=== PATIENT | male | born 1955 | race Caucasian/White ===

== ENCOUNTER → 2019-12-22 08:47 | Outpatient (BNVA) | payer MEDICARE, OTHER, BC, SELFPAY | PROVIDERS: Family Provider Registered Nurse; PCP Registered Nurse; Visit Provider Registered Nurse | DX: E11.9 Type 2 diabetes mellitus without complications (principal); E78.5 Hyperlipidemia, unspecified; I48.91 Unspecified atrial fibrillation | CPT/HCPCS: 80053; 80061; 83036; 85025 ==

== ENCOUNTER → 2020-04-07 08:54 | Outpatient (BNVA) | payer MEDICARE, BC, SELFPAY | PROVIDERS: Family Provider Registered Nurse; PCP Registered Nurse; Visit Provider Registered Nurse | DX: N28.9 Disorder of kidney and ureter, unspecified (principal); R39.89 Other symptoms and signs involving the genitourinary system; R94.4 Abnormal results of kidney function studies | CPT/HCPCS: 80069; 81000 ==

== ENCOUNTER → 2020-05-10 11:26 | Outpatient (BNVA) | payer MEDICARE, BC, SELFPAY | PROVIDERS: Family Provider Registered Nurse; PCP Registered Nurse; Visit Provider Registered Nurse | DX: E11.29 Type 2 diabetes mellitus with other diabetic kidney complication (principal); N28.9 Disorder of kidney and ureter, unspecified | CPT/HCPCS: 80053; 81000; 83036 ==

== ENCOUNTER → 2021-01-14 11:42 | Outpatient (BNVA) | payer MEDICARE, BC, SELFPAY | PROVIDERS: Family Provider Registered Nurse; PCP Registered Nurse; Visit Provider Registered Nurse | DX: E78.5 Hyperlipidemia, unspecified (principal); E11.29 Type 2 diabetes mellitus with other diabetic kidney complication; I10 Essential (primary) hypertension; I48.91 Unspecified atrial fibrillation | CPT/HCPCS: 80053; 80061; 81000; 85025 ==

== ENCOUNTER → 2021-06-21 09:24 | Outpatient (BNVA) | payer MEDICARE, BC, SELFPAY | PROVIDERS: Family Provider Registered Nurse; PCP Registered Nurse; Visit Provider Registered Nurse | DX: E78.5 Hyperlipidemia, unspecified (principal); E11.29 Type 2 diabetes mellitus with other diabetic kidney complication; Z00.00 Encounter for general adult medical examination without abnormal findings; F17.201 Nicotine dependence, unspecified, in remission; E66.9 Obesity, unspecified; Z71.3 Dietary counseling and surveillance | CPT/HCPCS: 80053; 83036 ==

== ENCOUNTER → 2021-09-20 09:03 | Outpatient (BNVA) | payer MEDICARE, BC, SELFPAY | PROVIDERS: Family Provider Registered Nurse; PCP Registered Nurse; Visit Provider Registered Nurse | DX: R05.9 Cough, unspecified (principal); J01.40 Acute pansinusitis, unspecified; Z20.822 Contact with and (suspected) exposure to COVID-19 | CPT/HCPCS: 87400; 87635 ==

== ENCOUNTER → 2021-11-16 11:30 | Outpatient (BNVA) | payer MEDICARE, BC, SELFPAY | PROVIDERS: Family Provider Registered Nurse; PCP Registered Nurse; Visit Provider Internal Medicine | DX: E78.5 Hyperlipidemia, unspecified (principal); I48.91 Unspecified atrial fibrillation | CPT/HCPCS: 80048; 83880 ==

== ENCOUNTER → 2021-11-24 11:05 | Outpatient (BNVA) | payer MEDICARE, BC, SELFPAY | PROVIDERS: Family Provider Registered Nurse; PCP Registered Nurse; Visit Provider Internal Medicine | DX: I48.91 Unspecified atrial fibrillation (principal); N28.9 Disorder of kidney and ureter, unspecified; E78.5 Hyperlipidemia, unspecified; I25.10 Atherosclerotic heart disease of native coronary artery without angina pectoris; R06.00 Dyspnea, unspecified | CPT/HCPCS: 80048; 83880 ==

== ENCOUNTER 2021-11-28 08:39 | Outpatient (CLI) | payer MEDICARE, BC, SELFPAY ==
[2021-11-28 09:44] VITALS: BMI 32.9
--- NOTE | 2021-11-28 09:51 | NMCV_ITS ---
NM radha perf SPECT r/s* [id number] Cornel Webb Age: 66 Gender: M : 1955 Exam Date: 11/28/2021 09:51 Ordering Phys: Maulik Maravilla M.D ([email or web address]) Technologist: EVELYN Horn Exam Location: [facility] Indications: CHEST PAIN STRESS TEST Please [facility] IMAGE PROTOCOL Rest/Stress 1 Lexiscan Day Radiopharmaceutical Dose (mCi) Administration Site Administered by Rest: Tc-99m 11.0 IV EVELYN Jim Sestamibi Stress:Tc-99m 32.8 IV EVELYN Jim Sestamibi Rest: 28-Nov-2021 60 Discovery 630 Stress: 28-Nov-2021 30 Discovery 630 0.4mg Lexiscan. Images obtained in supine and prone position. SPECT RESULTS Technical Quality: Excellent Raw Data Analysis: Normal Image Corrections: No attenuation or motion correction applied Summed Stress Score: 11 Summed Rest Score: 6 Summed Difference Score: 5 PERFUSION FINDINGS Small sized perfusion abnormality of moderate severity of basal to apical inferior, apical lateral and apical chicas on rest images with mild reversibility in mid inferior and inferolateral chicas on stress images. FUNCTIONAL RESULTS (calculated via Gated SPECT) Stress Image LV EF (%): 72 Stress EDV (mL):130 TID: 1.04 Stress ESV (mL):37 FUNCTIONAL FINDINGS: The left ventricle is normal in size. Transient Ischemia Dilatation of 1. There is normal left ventricular systolic function. The left ventricular ejection fraction is normal with a value of 72%. There is normal left ventricular wall thickening with no regional wall motion abnormality. IMPRESSIONS 1. Small sized perfusion abnormality of moderate severity of basal to apical inferior, apical lateral and apical chicas with mild reversibility in mid inferior and mid inferolateral chicas. 2. This is likely suggestive of old myocardial infarction with mild hiral- infarct ischemia in right coronary artery/circumflex artery territory. 3. Overall left ventricular systolic function is normal without regional wall motion abnormalities. 4. No prior similar studies to compare. Mónica Butt MD (Electronically Signed) Final Date: 29 November 2021 20:30 S
--- NOTE | 2021-11-28 09:51 | ECG_ITS ---
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 Interpretive Statements NAME OF STUDY: LEXISCAN SESTAMIBI STRESS TEST INDICATION: [Shortness of Breath, ] Procedure: At the baseline, the blood pressure was 115/80 mmHg with a heart rate of 75 bpm. The electrocardiogram showed atrial fibrillation, no significant ST/T wave changes. The Lexiscan was infused over a period of 20 seconds. A total of 0.4 mg of Lexiscan was infused. The stress phase was continued for a total of 5 minutes. Heart rate was at the end of stress phase was 78 bpm and a blood pressure of 133/72 mmHg. The EKG at the peak infusion revealed since normal atrial fibrillation with no significant ST-T wave changes. Sestamibi was injected 20 seconds after the Lexiscan infusion. Blood pressure at the end of recovery phase was 138/74 mmHg with a heart rate of 77 bpm. Conclusion: 1. Normal EKG response to Lexiscan infusion 2. No Lexiscan induced chest pain or cardiac arrhythmia. 3. Normal blood pressure and heart rate response. 4. Sestamibi/sestamibi perfusion scan pending; see separate report. Electronically Signed On 12-28-2021 17:15:27 VERIFICATION REP by Maulik Maravilla M.D. [id number]
[2021-11-28] MEDS: regadenoson 0.4 Mg/5 ml Syringe IVP (11:25)
[2021-11-28 11:36] VITALS: BP 138/74; PULSE 76
== END 2021-11-28 08:40 | disposition home or self-care (01) ==
LOC: CDL 09:04
PROVIDERS: PCP Registered Nurse; Visit Provider Internal Medicine
DX: R06.02 Shortness of breath (principal); R07.9 Chest pain, unspecified
CPT/HCPCS: 78452; 93017; A9500; J2785

== ENCOUNTER 2021-12-21 08:02 | Outpatient (CLI) | payer MEDICARE, BC, SELFPAY ==
--- NOTE | 2021-12-21 08:45 | USCV_ITS ---
Cornel Webb Age: 66 Gender: M : 1955 Exam Date: 12/21/2021 08:24 Ordering Phys: Maulik Maravilla M.D ([email or web address]) Technologist: Exam Location: [facility] [place] Indication: DYSPNEA BP: 110 / 65 HR: Rhythm: Atrial fibrillation Technical Quality: Adequate MEASUREMENTS (Male / Female) Normal Values 2D ECHO LV Diastolic Diameter PLAX 4.6 cm 4.2 - 5.9 / 3.9 - 5.3 cm LV Systolic Diameter PLAX 3.1 cm IVS Diastolic Thickness 1.9 cm 0.6 - 1.0 / 0.6 - 0.9 cm IVS Systolic Thickness 1.8 cm LVPW Diastolic Thickness 1.3 cm 0.6 - 1.0 / 0.6 - 0.9 cm LVPW Systolic Thickness 1.6 cm LVOT Diameter 2.0 cm LV Ejection Fraction 2D Teich 61.1 % LV Ejection Fraction MOD 2C 60.3 % LV Ejection Fraction 2C AL 60.5 % LA Diameter 4.6 cm Aorta at Sinotubular Diameter 2.2 cm M-MODE Aortic Annulus Diameter 2.6 cm LA Ao Ratio MM 1.9 MV E Point Septal Separation 0.4 cm DOPPLER AV Peak Velocity 117.0 cm/s LVOT Peak Velocity 122.0 cm/s AV Area Cont Eq vti 3.2 cm squared AV Area Cont Eq pk 3.2 cm squared MV Area PHT 4.6 cm squared Mitral E to A Ratio 3.8 MV E' Velocity 98.0 cm/s Mitral E to LV E' Lateral Ratio 14.9 TR Peak Velocity 333.0 cm/s TR Peak Gradient 44.4 mmHg Right Atrial Pressure 3.0 mmHg Pulmonary Artery Systolic Pressu 47.4 mmHg PV Peak Velocity 123.0 cm/s RV Acceleration Time 0.1 s FINDINGS Left Ventricle Normal left ventricular size. LV systolic function is normal with EF of 55-60%. Mild apical hypokinesis. Diastolic function is indeterminate because of atrial fibrillation Right Ventricle The right ventricle is normal in size and function. Right Atrium The right atrium is normal in size. Left Atrium The left atrium is dilated Mitral Valve Mild mitral annular calcification without significant stenosis or prolapse. There is mild mitral regurgitation. Aortic Valve Structurally normal aortic valve without significant sclerosis or stenosis. There is no aortic regurgitation. Tricuspid Valve Structurally normal tricuspid valve without significant stenosis. Mild tricuspid regurgitation. RVSP is 45-50mmHg. This is consistent with mild to moderate pulmonary hypertension Pulmonic Valve Structurally normal pulmonic valve without significant stenosis. There is no pulmonic regurgitation. Pericardium Normal pericardium without effusion. Aorta Normal ascending aorta dimension. CONCLUSIONS LV systolic function is normal with EF of 55-60% Mild apical hypokinesis. Diastolic function is indeterminate because of atrial fibrillation Left atrium is dilated Mild mitral annular calcification is noted. Mild mitral regurgitation Mild tricuspid regurgitation. Mild to moderate pulmonary hypertension No comparison studies are available Maulik Maravilla MD (Electronically Signed) Final Date: 29 December 2021 10:55 S
== END 2021-12-21 08:03 | disposition home or self-care (01) ==
LOC: RAD 08:05
PROVIDERS: PCP Registered Nurse; Visit Provider Internal Medicine
DX: R06.00 Dyspnea, unspecified (principal); I08.1 Rheumatic disorders of both mitral and tricuspid valves; I27.20 Pulmonary hypertension, unspecified
CPT/HCPCS: 93306

== ENCOUNTER 2021-12-23 12:26 | Observation (INO) | payer MEDICARE, BC, SELFPAY ==
[2021-12-23] VITALS (19 sets, daily range): BP systolic 119–162; BP diastolic 61–91; PULSE 78–80; RESP 15–23; TEMP 35.9–36.7; O2SAT 97–99; BMI 32.9
[2021-12-23 07:39] LABS: Basophils % 0.6 %; Eosinophils # 0.3 10^3/uL (0.0-0.8); Eosinophils % 4.5 %; Hematocrit 28.3 % (42.0-52.0); Hemoglobin 7.6 g/dL (11.7-16.6); Lymphocytes # 1.1 10^3/uL (0.8-4.8); Lymphocytes % 16.4 %; Mean Corpuscular HGB Conc 26.9 g/dL (30.0-36.0); Mean Corpuscular Hemoglobin 21.2 pg (28.0-34.0); Mean Corpuscular Volume 79.1 fl (80-94); Mean Platelet Volume 9.4 fL (7.4-10.4); Monocytes # 0.6 10^3/uL (0.2-0.9); Monocytes % 8.7 %; Neutrophils # 4.73 10^3/uL (1.8-7.7); Neutrophils % 69.4 %; Nucleated Red Blood Cells % 0 %; Platelet Count 318 10^3/cmm (130-400); Red Blood Count 3.58 10^6/uL (4.1-5.3); Red Cell Distribution Width 16.5 % (12.1-15.1); White Blood Count 6.8 10^3/uL (4.0-10.0)
[2021-12-23 07:52] LABS: INR 1.15 (0.8-1.2)
[2021-12-23 07:57] LABS: Anion Gap 15.4 (5-19); Blood Urea Nitrogen 18 mg/dL (8-23); Calcium 8.9 mg/dL (8.5-10.5); Carbon Dioxide 24 mmol/L (22-29); Chloride 105 mmol/L (98-107); Glomerular Filtration Rate 66.6 mL/min (90-130); Glucose 150 mg/dL (65-115); Osmolality Calculated 295 mOsm/kg (285-295); Potassium 4.4 mmol/L (3.5-5.1); Sodium 140 mmol/L (136-145)
[2021-12-23 07:59] LABS: SARS Covid-2 Antigen Negative (Negative)
[2021-12-23 09:41] LABS: Basophils % 0.5 %; Eosinophils # 0.3 10^3/uL (0.0-0.8); Eosinophils % 4.7 %; Hematocrit 25.8 % (42.0-52.0); Hemoglobin 7.1 g/dL (11.7-16.6); Lymphocytes % 18.1 %; Mean Corpuscular HGB Conc 27.5 g/dL (30.0-36.0); Mean Corpuscular Hemoglobin 21.9 pg (28.0-34.0); Mean Corpuscular Volume 79.6 fl (80-94); Mean Platelet Volume 9.3 fL (7.4-10.4); Monocytes # 0.5 10^3/uL (0.2-0.9); Monocytes % 8.4 %; Neutrophils # 3.78 10^3/uL (1.8-7.7); Neutrophils % 67.8 %; Nucleated Red Blood Cells % 0 %; Platelet Count 254 10^3/cmm (130-400); Red Blood Count 3.24 10^6/uL (4.1-5.3); Red Cell Distribution Width 16.3 % (12.1-15.1); White Blood Count 5.6 10^3/uL (4.0-10.0)
--- NOTE | 2021-12-23 11:00 | XACV_ITS ---
Exam Room: 2 Ht: 180 cm Wt: 107 kg BSA: 2.35 m2 Gender: Male : 1955 Any Known Allergies: Other Exam Priority: Routine Procedure(s): Procedure Description: Diagnostic procedure Diagnostic Cath Status: Elective Diagnostic Findings * Left Anterior Descending has no significant disease. Prior stents are patent. * Right Coronary Artery has patent stents. No significant disease noted. * AV groove circumflex is a small sized vessel. It has 70-80% stenosis. Diffuse disease after that. It gives rise to an OM that is ostially occluded. * INDICATION: Dyspnea on exertion/ abnormal stress test. * Left Main has no disease. * Coronary angiography shows right dominance. Conclusions 1. Patent prior stents. 2. Small sized AV groove circumflex artery has 70-80% stenosis. Plan for medical therapy. 3. Significant new onset anemia noted on the labs done prior to cath. Will need outpatient workup. Recommendations * Aggressive medical therapy for coronary artery disease. * We will treat AV groove circumflex artery stenosis medically as is a small sized vessel. * Outpatient referrral for GI workup. * Outpatient cardiology follow up in 1-2 weeks. * Dyspnea on exertion likely from anemia. Interventional RX Recommendation: medical therapy and/or counseling Diagnostic RX Recommendation: medical therapy and/or counseling Anticoagulation: Heparin Pressures Phase:Rest AO : 117 / 66 ( 87 ) @ 10:11:00 AM 120 / 64 ( 86 ) @ 10:12:00 AM 123 / 69 ( 93 ) @ 10:14:00 AM 128 / 66 ( 92 ) @ 10:18:00 AM 132 / 68 ( 94 ) @ 10:18:00 AM LV : 146 / 4 / 28 @ 10:18:00 AM 134 / 5 / 23 @ 10:18:00 AM 132 / 5 / 23 @ 10:18:00 AM Valves Phase:DefaultPhase AV : 2.0 @ 12:24:37 PM AV Mean Gradient: 8.0 @ 12:24:37 PM Clinical Evaluation EBL: 5mL-10mL Procedural Details Pre-Procedure Time Out. Identified patient by full name and date of as verbalized by the patient/guarantor. Does the consent match the physician's order: Yes. Accurate & Complete Informed Consent: Yes. Inpatient/Outpatient History & Physical on Chart: Yes. If H&P is completed, is and addenduem needed: No; If yes, is the addendum complete: N/A. Visualize and Verify Site with Patient/Guarantor: N/A. Relevant Radiology Images available: Yes. Pre-op teaching completed and patient verbalized understanding. The risks, benefits, and alternatives of sedation and/or procedure were discussed by physician. The patient agrees to continue. Procedure started. [facility] Clinical Fraility Score: 3: Managing Well. 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 Chest Pain Symptom Assessment: Atypical Angina. Correct patient, site and procedure confirmed by cath team. PERRLA. 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 Lungs clear x 5 lobes. IV Site on Arrival: 18 gauge in the left anticubital. IV Fluids: 0.9% NaCl at KVO. 500 mL infused prior to director of cardiac cath lab. Pre Procedural Pulses: right dorsalis pedis was Doppled. Pre Procedural Pulses: left dorsalis pedis was 2+. Pre Procedural Pulses: right posterior tibial was Doppled. Pre Procedural Pulses: left posterior tibial was 2+. Pre Procedural Pulses: right radial was 3+. Oxygen started at 2liters/min via nasal canula. right groin was prepped with chloroprep then draped in the usual sterile fashion. right radial was prepped with chloroprep then draped in the usual sterile fashion. Physician notified. Baseline sample Acquired. HR: 80 BPM. Physician arrived. Physician scrubbed in. Immediate Pre-Procedure Time Out. Correct Patient: Yes; Correct Procedure: Yes; Correct Site: Yes; Correct Patient Position: Yes; Correct Supplies: Yes; Dried Flammable Prep: Yes; Blood Products Available: N/A;. Lidocaine 1% infiltrated to the right radial. Arterial access obtained. A 5 chinese TIG catheter in over wire. Multiple views taken of left coronary artery. Catheter redirected to the RCA. Multiple views taken of right coronary artery. EDP Sample taken: LV 134/5,23; HR: 80 BPM; SpO2: 100%. Pullback taken: LV 132/5,23; AO 128/66(92); Mean: 8mmHg, Peak to Peak: 2mmHg, SEP: 16sec/min; HR: 80 BPM; SpO2: 100%. Catheter removed over the standard wire. Physician scrubbed out. Patient's family updated. A TR Band was successful obtaining hemostatsis at the Right Radial artery insertion site. Post Procedure: Pulses reassessed and unchanged. PERRLA. 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 No VTE prophylaxis required. Medication's Wasted: Heparin = 3000 units. Medication's Wasted: Lidocaine 1% = 18 mL. Medication's Wasted: Nitro = 49.8 mg. Medication's Wasted: Other = Versed 1 mg. Total IV fluids: 38 mL. Contrast type used: Omnipaque 300 mg/mL, 150 mL bottle. Complications: None. Estimated blood loss: 5mL-10mL. Responsiveness - Normal response to verbal stimuli; alert and oriented, PERRLA. Airway - Unaffected, no intervention required; spontaneous ventilation. Circulation: W/N/L, pulses unchanged. Nausea/Vomiting: No. Procedure completed. Patient transferred by wheelchair to 1st floor. Vital chart was stopped. Access Site Site: Right Radial artery Sheath Size: 6 Fr Hemostasis Method: TR Band Hemostasis Success: Successful Procedure Medications Start: 11:58 AM Stop: 11:58 AM Medication: Versed Amount: 1 mg Route: I.V. Start: 11:58 AM Stop: 11:58 AM Medication: Fentanyl Amount: 50 mcg Route: I.V. Start: 12:05 PM Stop: 12:05 PM Medication: Versed Amount: 1 mg Route: I.V. Start: 12:06 PM Stop: 12:06 PM Medication: Fentanyl Amount: 50 mcg Route: I.V. Start: 12:08 PM Stop: 12:08 PM Medication: Nitrogylcerin Amount: 200 mcg Route: I.A. Start: 12:10 PM Stop: 12:10 PM Medication: Heparin Amount: 3000 units Route: I.V. Start: 12:11 PM Stop: 12:11 PM Medication: Versed Amount: 1 mg Route: I.V. I, the attending physician, have reviewed and verified all procedure medications. Yes, all medications given per verbal order History/Risk Factors Hypertension: No Dyslipidemia: Yes Peripheral Arterial Disease (PAD): No Myocardial Infarction (ME): No Obesity: No Renal Disease: No Prior Interventions PCI: Yes CABG: No Valve Surgery: No Report Signatures Finalized by Maulik Maravilla MD on 01/03/2022 11:45 AM
--- NOTE | 2021-12-23 12:01 | W.PM.OPSFHP ---
Same Day Surgery H&P Indication for Procedure/HPI DATE OF PROCEDURE: December 23, 2021 CHIEF COMPLAINT/INDICATIONFOR SURGICAL PROCEDURE: Dyspnea on exertion/abnormal stress test PREOP DIAGNOSIS: Dyspnea on exertion/abnormal stress test PLANNED PROCEDURE: Operation Date: 12/23/21 12:00 Proposed Procedures p Cardiac Catheterization/93200/I25.10 artherosclerotic(Not Applicable) - Maulik Maravilla M.D Operation Date: 12/23/21 12:00 Proposed Procedures p Cardiac Catheterization/29333/I25.10 artherosclerotic(Not Applicable) - Maulik Maravilla M.D ?Cornel is now 65 years old. He has a history of permanent atrial fibrillation, coronary disease, peripheral arterial disease, sick sinus syndrome, pacemaker, hypertension, carotid stenosis, history of TIAs, dyslipidemia and prior smoking. Patient was having significant shortness of breath. He underwent Lexiscan that was abnormal. He has a significant anemia. We will perform diagnostic coronary angiogram. ROS CONSTITUTIONAL: No fever chills weight loss or gain or night sweats. [] HEENT: Normocephalic, atraumatic.[] RESPIRATORY: No cough, sputum, hemoptysis or wheezing.[] CARDIOVASCULAR: Shortness of breath GI: no nausea vomiting diarrhea. [] LIVE SOURCE OPERATOR: No numbness, tingling, weakness or loss of function in any part of the body. [] MUSCULOSKELETAL: No knee or joint pain or rashes. [] Medications/Allergies* Home Medications Medication Instructions Recorded Confirmed Type aspirin 81 mg tablet,delayed 81 mg PO QDAY 11/27/19 12/23/21 History release (Adult Low Dose Aspirin) krill oil 500 mg capsule mg PO DAILY cap 11/27/19 12/07/21 History coenzyme Q10 200 mg capsule (Co 200 mg PO DAILY 11/29/20 12/23/21 History Q-10) metformin 500 mg tablet 500 mg PO ONCE tab 06/21/21 12/23/21 History Allergies/Adverse Reactions Allergy/AdvReac Type Severity Reaction Status Date / Time yellow dye Allergy Unknown Verified 11/16/21 10:54 Pertinent History/Comorbid Conditions* Medical History (Updated 11/17/21 @ 09:07 by Maulik Maravilla M.D) Anticoagulant long-term use ASHD (arteriosclerotic heart disease) Atrial fibrillation COPD (chronic obstructive pulmonary disease) Dyslipidemia Necrobiosis lipoidica PAD (peripheral artery disease) Tobacco abuse, in remission Surgical History (Updated 12/01/19 @ 16:44 by Buck Santizo MD) H/O circumcision Previous back surgery S/P angioplasty with stent S/P carpal tunnel release S/P cholecystectomy S/P peripheral artery angioplasty with stent placement S/P rotator cuff repair Status cardiac pacemaker Family History (Updated 11/27/19 @ 10:40 by Regina Bettencourt RN) CAD (coronary artery disease) Social History Smoking and tobacco status: former smoker Alcohol intake: current Alcohol intake frequency: holidays/special occasions only Alcohol type: beer Lives independently: Yes Household members: spouse Marital status: service: Yes branch: [employer] Current occupational status: retired Current gender identity: Male Pertinent Exam Findings alert, oriented x 3, clear to auscultation bilaterally and regular rate & rhythm Conscious Sedation Assessment PATIENT ASSESSED PRIOR TO SEDATION, WITH NO CHANGE NOTED: Yes AIRWAY EVAL/ANESTHESIA PLAN: normal airway, see other exam findings, ASA III, Monitored Anesthesia, Local Anesthesia, Risks, benefits & alternatives of sedation and/or procedure discussed and Patient agrees to continue as planned Recommendations Surgery/Procedure today (Left heart cath with possible percutaneous coronary intervention) Coding Level of Care Code Acute Teacher Of The Deaf/Hard Of Hearing for Yuliet Buckley
--- NOTE | 2021-12-23 17:09 | PC.NURSE ---
Around 1315: Patient arrived to [facility] for recovery after LHC. Hgb 7.1. Orders received from Dr. Maravilla to transfuse 1 unit PRBCs. Medication and diet orders recieved, see MAR and orders. Around 1600: TR Band removed. Cleaned site with soap and water. Dress site with 2x2 and transparent film. No drainage or hematoma noted.
[2021-12-23] MEDS: FUROsemide 10 mg/mL SDV 4mL 40 MG IVP (17:32)
--- NOTE | 2021-12-23 17:46 | PM.SDS ---
Short Stay Summary Providers Date of Admit/Discharge: 12/23/21 Attending Provider: Maulik Maravilla M.D Primary Care Provider: MICHELLE Can Chief Complaint: I25.10 Atherosclerotic HPI History of Present Illness Cornel Webb is a 66 year old male ?with PMH of permanent atrial fibrillation, coronary disease, peripheral arterial disease, sick sinus syndrome, pacemaker, hypertension, carotid stenosis, history of TIAs, dyslipidemia and prior smoking.? Patient was having significant shortness of breath.? He underwent Lexiscan that was abnormal.? On his labs performed today patient was found to have significant anemia with hemoglobin of 7.6 that on repeat testing was 7.1. This was a significant drop from last hemoglobin from 1 year back when it was 14. Patient denied bleeding issues. We decided to perform diagnostic coronary angiogram only. Review of Systems Const: Reports: fatigue; Denies: fever(s), chills, change in weight or diaphoresis Eyes: Denies: change in vision or eye redness ENMT: Denies: throat pain, odynophagia, mouth pain or epistaxis Card: Reports: swelling of feet/ankles, lightheadedness and dyspnea on exertion; Denies: chest pain, palpitations, irregular heart rhythm, edema, syncope, pre-syncope, orthopnea or leg pain with exertion Resp: Denies: dyspnea, productive cough or wheezing GI: Reports: nausea and heartburn ( sour stomach ); Denies: vomiting, hematemesis, hematochezia or melena : Denies: hematuria Musc: Denies: extremity swelling or joint pain Skin/Breast: Denies: rash, pruritus, erythema or new lesions Neuro: Reports: weakness in extremities and dizziness; Denies: numbness in extremities, sensory changes, frequent falls, Slurred speech present or difficulty communicating thoughts Psych: Denies: anxiety, depression, irritability, suicidal ideation or homicidal ideation Endo: Denies: polyuria, polydipsia or excessive sweating Gibson/Lymph: Reports: easy bruising and easy bleeding Home Meds/Allergies Home Medications and Allergies Home Medications Medication Instructions Recorded Confirmed Type aspirin 81 mg tablet,delayed 81 mg PO QDAY 11/27/19 12/23/21 History release (Adult Low Dose Aspirin) krill oil 500 mg capsule mg PO DAILY cap 11/27/19 12/07/21 History coenzyme Q10 200 mg capsule (Co 200 mg PO DAILY 11/29/20 12/23/21 History Q-10) metformin 500 mg tablet 500 mg PO ONCE tab 06/21/21 12/23/21 History Allergies Allergy/AdvReac Type Severity Reaction Status Date / Time yellow dye Allergy Unknown Verified 01/03/22 10:48 PFSH Acute PFSH: Medical History Anticoagulant long-term use ASHD (arteriosclerotic heart disease) Atrial fibrillation COPD (chronic obstructive pulmonary disease) Dyslipidemia Necrobiosis lipoidica PAD (peripheral artery disease) Tobacco abuse, in remission Surgical History H/O circumcision Previous back surgery S/P angioplasty with stent S/P carpal tunnel release S/P cholecystectomy S/P peripheral artery angioplasty with stent placement S/P rotator cuff repair Status cardiac pacemaker Family History Other CAD (coronary artery disease) Social History Smoking and tobacco status: former smoker Alcohol intake: current Alcohol intake frequency: holidays/special occasions only Alcohol type: beer Lives independently: Yes Household members: spouse Marital status: service: Yes branch: [employer] Current occupational status: retired Current gender identity: Male Vitals/I&O/Wt Last Vital Signs Temp 97.8 F 12/23/21 15:13 Pulse 79 12/23/21 16:28 Resp 18 12/23/21 16:28 BP 137/77 12/23/21 16:28 Pulse Ox 99 12/23/21 16:28 12/23/21 12/23/21 12/23/21 06:59 14:59 22:59 Intake Total 0 / 0 Balance 0 / 0 Weight last 48 hrs Weight 236 lb Physical Exam Narrative: GENERAL: Patient is alert, awake and oriented x3. [] NECK: No jugular vein distension. [] HEENT: No cyanosis. No icterus. No pallor. [] HEART: Irregularly regular. No murmur, rub or gallop. [] LUNGS: Clear to auscultate bilaterally. [] ABDOMEN: Soft, nontender and nondistended. Positive bowel sounds. No guarding, rebound or tenderness. [] CENTRAL NERVOUS SYSTEM: Grossly nonfocal. [] EXTREMITIES: Lower extremities with 1+ edema bilaterally. Pulses palpable in the lower extremities, both dorsalis pedis and posterior tibial. [] Hospital Course Hospital Course Cornel Webb is a 66 year old male ?with PMH of permanent atrial fibrillation, coronary disease, peripheral arterial disease, sick sinus syndrome, pacemaker, hypertension, carotid stenosis, history of TIAs, dyslipidemia and prior smoking.? Patient was having significant shortness of breath.? He underwent Lexiscan that was abnormal.? On his labs performed today patient was found to have significant anemia with hemoglobin of 7.6 that on repeat testing was 7.1. This was a significant drop from last hemoglobin from 1 year back when it was 14. Patient denied bleeding issues. We decided to perform diagnostic coronary angiogram only. Coronary angiogram demonstrated patent prior stents. AV groove circumflex had significant stenosis. Distal OM branch was ostially occluded and was filling via collateral blood supply. Plan was to manage him medically. Postprocedure, we transfused him with 1 unit of blood given his Hgb of 7.1 and history of CAD.. Plan for referring him to Dr. Sorenson who has seen him in the past for possible upper and lower GI scopes. We will hold Xarelto till that time SSS Data Data Completed and Pending: Pending at discharge Category Date Time Status BUSINESS SUPPORT SPECIALIST request for service Routin e Exams 12/23/21 11:00 Ordered PRBC [Leukocyte R educed RBC] Routin e Lab 12/23/21 13:19 Results Type and Screen T imed Lab 12/23/21 13:19 Results Discharge Plan Discharge Patient Disposition: Home Condition: Stable Prescriptions: Continued metoprolol tartrate 50 mg tablet 50 mg PO BID Qty: 180 6RF coenzyme Q10 [Co Q-10] 200 mg capsule 200 mg PO DAILY 0RF krill oil 500 mg capsule PO DAILY 0RF aspirin [Adult Low Dose Aspirin] 81 mg tablet,delayed release (DR/EC) 81 mg PO QDAY 0RF atorvastatin 40 mg tablet 40 mg PO DAILY Qty: 90 3RF nitroglycerin [Nitrostat] 0.4 mg tablet, sublingual 0.4 mg SUBLINGUAL Q5M PRN (Reason: chest pain) Qty: 25 3RF furosemide 40 mg tablet 40 mg PO DIRECTED Qty: 90 3RF Rx Instructions: Take one tab in the morning and 1/2 tab in the afternoon. isosorbide mononitrate 30 mg tablet extended release 24 hr 30 mg PO BID Qty: 180 3RF Held metformin 500 mg tablet 500 mg PO ONCE 0RF Hold Instructions: Resume on 12/25/21. Xarelto 20 mg tablet See Rx Instructions .ROUTE .COMPLEX Qty: 90 0RF Hold Instructions: Hold till possible GI bleed workup is complete Dose Instruction: TAKE 1 TABLET BY MOUTH DAILY Rx Instructions: TAKE 1 TABLET BY MOUTH DAILY No Action fenofibrate nanocrystallized 145 mg tablet See Rx Instructions .ROUTE .COMPLEX Qty: 90 3RF Dose Instruction: TAKE 1 TABLET DAILY (BY Infoxel) Rx Instructions: TAKE 1 TABLET DAILY (BY Infoxel) glipizide 5 mg tablet See Rx Instructions .ROUTE .COMPLEX Qty: 90 3RF Dose Instruction: TAKE 1 TABLET DAILY Rx Instructions: TAKE 1 TABLET DAILY Discharge Orders: Discharge Order (Routine); Ordered 12/23/21 Ordered By: Maulik Maravilla Referrals: Maulik Maravilla M.D [Physician] - 1 month (Heart care services will be calling you to arrange your follow-up care. ) Angi Head FNP [Nurse Practitioner] - 7-10 days (Heart care services will be calling you to arrange your follow-up care. ) Discharge Diet: Diabetic Discharge Activity: Increase activity as tolerated Patient Instructions: Opioid Safety, Post Angiogram Home Care Instructions Attestations Medical Necessity Statement*: Care not expected to cross 2 midnights Time Spent in Patient Care*: greater than 30 min Quality Metrics Clinical Quality Measures: [ No reported AMI, CVA or VTE this stay] Coding Level of Care Code Acute Learning Development Specialist for Yuliet Buckley
--- NOTE | 2021-12-23 19:15 | PC.NURSE ---
Discharge Note Patient discharged to home via private vehicle accompanied by spouse. Discharge instructions reviewed with patient and/or national sales representative. Mobile pharmacy medications and/or prescriptions provided. Belongings/home medications returned.
== END 2021-12-23 19:00 | disposition home or self-care (01) ==
LOC: CSU 12:28
PROVIDERS: Admitting Provider Internal Medicine; PCP Registered Nurse; Visit Provider Internal Medicine
DX: I25.10 Atherosclerotic heart disease of native coronary artery without angina pectoris (principal); I48.21 Permanent atrial fibrillation; I73.9 Peripheral vascular disease, unspecified; Z95.0 Presence of cardiac pacemaker; I10 Essential (primary) hypertension; Z86.73 Personal history of transient ischemic attack (TIA), and cerebral infarction without residual deficits; Z79.82 Long term (current) use of aspirin; J44.9 Chronic obstructive pulmonary disease, unspecified; Z87.891 Personal history of nicotine dependence; Z95.5 Presence of coronary angioplasty implant and graft
CPT/HCPCS: 36415; 36430; 80048; 85025; 85610; 86850; 86900; 86920; 87426; 93452; 93458; C1769; C1887; C1894; G0378; J1644; J1940; J2250; J3010; J3490; J7030; P9016; Q9967

== ENCOUNTER → 2022-01-03 10:28 | Outpatient (BNVA) | payer MEDICARE, BC, SELFPAY | PROVIDERS: PCP Registered Nurse; Visit Provider Nurse Practitioner Family | DX: I25.10 Atherosclerotic heart disease of native coronary artery without angina pectoris (principal); R06.00 Dyspnea, unspecified; I27.20 Pulmonary hypertension, unspecified; Z09 Encounter for follow-up examination after completed treatment for conditions other than malignant neoplasm; I48.91 Unspecified atrial fibrillation; Z87.891 Personal history of nicotine dependence | CPT/HCPCS: 80048; 83880; 85025; 87635; 99214 ==

== ENCOUNTER 2022-01-04 08:17 | Day surgery (SDC) | payer MEDICARE, BC, SELFPAY ==
[2022-01-03 14:14] VITALS: BMI 29.9
--- NOTE | 2022-01-04 08:35 | ANES.PREANE2 ---
Pre-Anesthetic Assessment Height/Weight: Height 1.8 m Weight 97.522 kg Preop Diagnosis: diagnostic Operation Date: 01/04/22 10:00 Proposed Procedures p EGD 08312/24539/d50.9(Not Applicable) - Hero Sorenson MD s Colonoscopy(Not Applicable) - Hero Sorenson MD Familial anesthetic complications: None Was Beta Jess taken within 24 hours: N/A Was Clonidine taken within 24 hours: N/A Social No alcohol and No tobacco Exam alert, oriented x 3, clear to auscultation bilaterally and regular rate & rhythm Airway Submandibular: within normal limits Cervical ROM: within normal limits Mallampati: Class II Comments: Comments: Mathew Pulmonary Exertional Dyspnea CV/HEM Atrial Fibrillation, Anemia, Coronary Artery Disease (Stents) and Peripheral Vascular Disease Pacemaker Metabolic Diabetes Mellitus and Morbid Obesity [facility] [place] Lower Back Pain Anesthetic Plan ASA status: 3 Anesthesia: MAC Medications/Allergies Home Medications Medication Instructions Recorded Confirmed Last Taken Type aspirin 81 mg tablet,delayed 81 mg PO QDAY 11/27/19 01/03/22 12/23/21 05:00 History release (Adult Low Dose Aspirin) krill oil 500 mg capsule 500 mg PO DAILY cap 11/27/19 01/03/22 Unknown History metoprolol tartrate 50 mg tablet 50 mg PO BID #180 tab 05/31/20 01/03/22 12/23/21 05:00 Rx coenzyme Q10 200 mg capsule (Co 200 mg PO DAILY 11/29/20 01/03/22 12/23/21 05:00 History Q-10) nitroglycerin 0.4 mg sublingual 0.4 mg SUBLINGUAL Q5M PRN #25 tab 03/07/21 01/03/22 Unknown Rx tablet (Nitrostat) atorvastatin 40 mg tablet 40 mg PO DAILY #90 tab 06/21/21 01/03/22 12/22/21 20:30 Rx metformin 500 mg tablet 500 mg PO ONCE tab 06/21/21 01/03/22 12/21/21 09:00 History rivaroxaban 20 mg tablet (Xarelto) See Rx Instructions .ROUTE 10/11/21 01/03/22 12/27/21 Rx .COMPLEX #90 tab furosemide 40 mg tablet 40 mg PO DIRECTED #90 tab 11/30/21 01/03/22 12/22/21 14:00 Rx isosorbide mononitrate 30 mg 30 mg PO BID #180 tab 11/30/21 01/03/22 12/23/21 05:00 Rx tablet,extended release 24 hr fenofibrate nanocrystallized 145 See Rx Instructions .ROUTE 12/27/21 01/03/22 Unknown Rx mg tablet .COMPLEX #90 tab glipizide 5 mg tablet 5 mg PO DAILY 01/03/22 01/03/22 Unknown History pantoprazole 40 mg tablet,delayed 40 mg PO DAILY #30 tab 01/03/22 01/03/22 Unknown Rx release (Protonix) Allergies Allergy/AdvReac Type Severity Reaction Status Date / Time yellow dye Allergy Unknown Verified 01/03/22 13:06 [facility] Anesthesia Medical History (Updated 01/03/22 @ 15:23 by Hero Sorenson MD) Anemia ASHD (arteriosclerotic heart disease) Atrial fibrillation COPD (chronic obstructive pulmonary disease) Dyslipidemia Necrobiosis lipoidica PAD (peripheral artery disease) Pulmonary hypertension Surgical History H/O circumcision Previous back surgery S/P angioplasty with stent S/P carpal tunnel release S/P cholecystectomy S/P peripheral artery angioplasty with stent placement S/P rotator cuff repair Status cardiac pacemaker Family History Other CAD (coronary artery disease) Social History Smoking and tobacco status: former smoker Alcohol intake: current Alcohol intake frequency: holidays/special occasions only Alcohol type: beer Lives independently: Yes Household members: spouse Marital status: service: Yes branch: [employer] Current occupational status: retired Current gender identity: Male Data Anesthesia Cardiac Studies: Echocardiogram 12/21/21 Sestamibi Stress Test (Cardiology) 11/28/21
[2022-01-04 09:02] VITALS: BP 142/82; PULSE 80; RESP 18; TEMP 36.3; O2SAT 96
[2022-01-04] MEDS: sodium chloride 0.9% 1,000 ML 30 ML IV (09:06)
--- NOTE | 2022-01-04 10:05 | W.PM.OPSUD ---
Surgery/Procedure H&P Update DATE OF PROCEDURE: January 04, 2022 DATE H&P PERFORMED: 01/03/22 H&P UPDATE INFORMATION: I have reviewed H&P completed within last 30 days, I have examined patient prior to procedure and No changes to prior documentation PREOP DIAGNOSIS: diagnostic PLANNED PROCEDURE: Operation Date: 01/04/22 10:00 Proposed Procedures p EGD 67262/82158/d50.9(Not Applicable) - Hero Sorenson MD s Colonoscopy(Not Applicable) - Hero Sorenson MD
[2022-01-04 10:34] VITALS: BP 130/79; PULSE 80; RESP 16; TEMP 36.1; O2SAT 100
[2022-01-04 10:46] VITALS: BP 144/86; PULSE 81; RESP 16; O2SAT 99
--- NOTE | 2022-01-04 12:06 | ANE.PACU2 ---
Inpatient post-anesthesia follow up: Vital signs: Temperature 97 F Pulse Rate 81 Respiratory Rate 16 Blood Pressure 144/86 Pulse Oximetry 99 Oxygen Delivery Me thod Room Air Oxygen Flow Rate 3 Fraction of Inspir ed Oxygen Hydration adequate: Yes Nausea and vomiting: No Pain level: 1 Mental status: Baseline
[2022-11-14 12:20] VITALS: BMI 34.1
== END 2022-01-04 11:10 | disposition home or self-care (01) ==
PROVIDERS: PCP Registered Nurse; Visit Provider Surgery
PROC: 0DJ08ZZ Inspection of Upper Intestinal Tract, Via Natural or Artificial Opening Endoscopic (ICD-10-PCS; CPT 43235; principal; 2022-01-04 10:00)
PROC: 0DJD8ZZ Inspection of Lower Intestinal Tract, Via Natural or Artificial Opening Endoscopic (ICD-10-PCS; CPT 45378; 2022-01-04 10:00)
DX: D50.9 Iron deficiency anemia, unspecified (principal); K20.90 Esophagitis, unspecified without bleeding; K29.80 Duodenitis without bleeding; K64.5 Perianal venous thrombosis; I48.91 Unspecified atrial fibrillation; I25.10 Atherosclerotic heart disease of native coronary artery without angina pectoris; Z95.5 Presence of coronary angioplasty implant and graft; Z95.0 Presence of cardiac pacemaker; E11.9 Type 2 diabetes mellitus without complications; E66.01 Morbid (severe) obesity due to excess calories; Z68.30 Body mass index [BMI] 30.0-30.9, adult; Z79.82 Long term (current) use of aspirin; Z79.84 Long term (current) use of oral hypoglycemic drugs; E78.5 Hyperlipidemia, unspecified; J44.9 Chronic obstructive pulmonary disease, unspecified; Z87.891 Personal history of nicotine dependence
CPT/HCPCS: 43235; 45378; J2704; J7030

== ENCOUNTER → 2022-01-13 10:33 | Outpatient (BNVA) | payer MEDICARE, BC, SELFPAY | PROVIDERS: PCP Registered Nurse; Visit Provider Registered Nurse | DX: D64.9 Anemia, unspecified (principal); I10 Essential (primary) hypertension | CPT/HCPCS: 80053; 83880; 85025 ==

== ENCOUNTER 2022-01-16 13:29 | Outpatient (CLI) | payer MEDICARE, BC, SELFPAY ==
--- NOTE | 2022-01-16 13:39 | XR_ITS ---
WS: [id number] Chest 2 views, 01/16/2022 Clinical Data: R06.00 - Dyspnea, unspecified Comparison: None. Findings: No nodules, masses or effusions are seen. The heart is normal. The pulmonary vascularity is not increased. No pneumonia or pneumothorax is seen. The permanent pacemaker is in good position wit h the generator overlapping the left upper chest. There is an orthopedic anchor in the right humeral head. XR/XR chest 2V* [id number] Impression: Cardiac pacemaker.
== END 2022-01-16 13:30 | disposition home or self-care (01) ==
LOC: RAD 13:32
PROVIDERS: PCP Registered Nurse; Visit Provider Registered Nurse
DX: R06.00 Dyspnea, unspecified (principal); Z95.0 Presence of cardiac pacemaker
CPT/HCPCS: 71046

== ENCOUNTER → 2022-01-18 13:45 | Outpatient (BNVA) | payer MEDICARE, BC, SELFPAY | PROVIDERS: PCP Registered Nurse; Visit Provider Internal Medicine | DX: E11.9 Type 2 diabetes mellitus without complications (principal); I10 Essential (primary) hypertension; I25.10 Atherosclerotic heart disease of native coronary artery without angina pectoris; I73.9 Peripheral vascular disease, unspecified | CPT/HCPCS: 99214 ==

== ENCOUNTER → 2022-01-20 10:32 | Outpatient (BNVA) | payer MEDICARE, BC, SELFPAY | PROVIDERS: PCP Registered Nurse; Visit Provider Registered Nurse | DX: D64.9 Anemia, unspecified (principal) | CPT/HCPCS: 82728; 83550; 85025 ==

== ENCOUNTER → 2022-02-20 10:09 | Outpatient (BNVA) | payer MEDICARE, BC, SELFPAY | PROVIDERS: PCP Registered Nurse; Visit Provider Registered Nurse | DX: D64.9 Anemia, unspecified (principal) | CPT/HCPCS: 82728; 83550; 85007; 85027 ==

== ENCOUNTER → 2022-05-23 09:40 | Outpatient (BNVA) | payer MEDICARE, BC, SELFPAY | PROVIDERS: PCP Registered Nurse; Visit Provider Registered Nurse | DX: D64.9 Anemia, unspecified (principal); E11.9 Type 2 diabetes mellitus without complications; I27.20 Pulmonary hypertension, unspecified | CPT/HCPCS: 82728; 83036; 83550; 85025 ==

== ENCOUNTER → 2022-07-14 08:42 | Outpatient (BNVA) | payer MEDICARE, BC, SELFPAY | PROVIDERS: PCP Registered Nurse; Visit Provider Internal Medicine | DX: I48.21 Permanent atrial fibrillation (principal); Z79.01 Long term (current) use of anticoagulants; I25.10 Atherosclerotic heart disease of native coronary artery without angina pectoris; I10 Essential (primary) hypertension; Z95.0 Presence of cardiac pacemaker; E78.5 Hyperlipidemia, unspecified; E11.29 Type 2 diabetes mellitus with other diabetic kidney complication; Z79.84 Long term (current) use of oral hypoglycemic drugs; R06.00 Dyspnea, unspecified; Z87.891 Personal history of nicotine dependence | CPT/HCPCS: 93280; 99214 ==

== ENCOUNTER → 2022-09-07 10:19 | Outpatient (BNVA) | payer MEDICARE, BC, SELFPAY | PROVIDERS: PCP Registered Nurse; Visit Provider Registered Nurse | DX: D64.9 Anemia, unspecified (principal); E11.9 Type 2 diabetes mellitus without complications; I48.91 Unspecified atrial fibrillation; E11.29 Type 2 diabetes mellitus with other diabetic kidney complication | CPT/HCPCS: 80053; 82728; 83036; 83550; 85025 ==

== ENCOUNTER 2022-09-20 14:04 | Oncology outpatient (recurring) (ONCR) | payer MEDICARE, BC, SELFPAY | END 2022-10-04 23:59 | disposition home or self-care (01) | PROVIDERS: PCP Registered Nurse; Visit Provider Internal Medicine Medical Oncology | DX: D50.9 Iron deficiency anemia, unspecified (principal); Z79.01 Long term (current) use of anticoagulants; Z79.899 Other long term (current) drug therapy | CPT/HCPCS: 99204 ==

== ENCOUNTER → 2022-09-25 10:58 | Outpatient (BNVA) | payer MEDICARE, BC, SELFPAY | PROVIDERS: PCP Registered Nurse; Visit Provider Registered Nurse | DX: D50.8 Other iron deficiency anemias (principal) | CPT/HCPCS: 82270 ==

== ENCOUNTER → 2022-09-26 09:06 | Outpatient (BNVA) | payer MEDICARE, BC, SELFPAY | PROVIDERS: PCP Registered Nurse; Visit Provider Internal Medicine Medical Oncology | DX: D50.8 Other iron deficiency anemias (principal) | CPT/HCPCS: 82728; 83550; 85025 ==

== ENCOUNTER → 2022-10-24 08:24 | Outpatient (BNVA) | payer MEDICARE, BC, SELFPAY | PROVIDERS: PCP Registered Nurse; Visit Provider Internal Medicine Medical Oncology | DX: D64.9 Anemia, unspecified (principal) | CPT/HCPCS: 82728; 83550; 85025 ==

== ENCOUNTER 2022-11-17 10:18 | Day surgery (SDC) | payer MEDICARE, BC, SELFPAY ==
[2022-11-17 10:41] VITALS: BP 150/89; PULSE 80; RESP 18; TEMP 36.3; O2SAT 96
--- NOTE | 2022-11-17 10:48 | ECG_ITS ---
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 Measurements Intervals Olden Rate: 80 P: 0 OR: 0 QRS: -81 QRSD: 173 T: 78 QT: 442 QTc: 510 Interpretive Statements ELECTRONIC VENTRICULAR PACEMAKER ABNORMAL RHYTHM ECG Compared to ECG 10/03/2018 13:59:32 Atrial-paced complex(es) or rhythm no longer present Electronically Signed On 11-17-2022 16:52:58 [employer]PERVISOR [employer] FINISHING by Mónica Butt M.D. [email or web address]
[2022-11-17] MEDS: sodium chloride 0.9% 1,000 ML 30 ML IV (10:53)
[2022-11-17 11:07] LABS: Glucose Point of Care 138 mg/dL (70-110)
--- NOTE | 2022-11-17 11:39 | ANES.PREANE2 ---
Pre-Anesthetic Assessment Height/Weight: Height 1.8 m Temp Pulse Resp BP Pulse Ox O2 Del Method 97.4 F L 80 18 150/89 96 11/17/22 10:41 11/17/22 10:41 11/17/22 10:41 11/17/22 10:41 11/17/22 10:41 11/17/22 10:41 Preop Diagnosis: diagnostic Operation Date: 11/17/22 12:00 Proposed Procedures p SHAI/Cardioversion 89461/51020 I48.91(Not Applicable) - Clarence Gordon Cardioversion(Not Applicable) - Clarence Gordon anesthetic complications: none Last intake: Intake Last Liquid Date 11/16/22 Last Liquid Time 23:00 Last Solid Date 11/16/22 Last Solid Time 17:00 Social No alcohol and No tobacco former smoker Exam alert, oriented x 3, clear to auscultation bilaterally and regular rate & rhythm Airway Mallampati: Class II Dentition: false Comments: Comments: full gillette CV/HEM Anemia, Arrythmia (a fib, sick sinus syndrome, pacemaker), Coronary Artery Disease, Hypertension and Peripheral Vascular Disease 12/21/21 Procedure(s): CV. echo complete* [id number] ?CONCLUSIONS ?LV systolic function is normal with EF of 55-60% ?Mild apical hypokinesis. ?Diastolic function is indeterminate because of atrial ?fibrillation ?Left atrium is dilated ?Mild mitral annular calcification is noted. Mild mitral ?regurgitation ?Mild tricuspid regurgitation. Mild to moderate pulmonary ?hypertension ?No comparison studies are available ? Date of Service: 11/28/21 Procedure(s): NM radha perf SPECT r/s* [id number] ?IMPRESSIONS ?1. Small sized perfusion abnormality of moderate severity of basal to apical ?inferior, apical lateral and apical chicas with mild reversibility in mid?inferior and mid inferolateral chicas. ?2. This is likely suggestive of old myocardial infarction with mild hiral- ?infarct ischemia in right coronary artery/circumflex artery territory. ?3. Overall left ventricular systolic function is normal without regional wall?motion abnormalities. ?4. No prior similar studies to compared ?Mónica Butt MD? ?(Electronically Signed) ?11/28/21 Procedure(s): Sestamibi Stress Test Request Conclusion: 1.? Normal EKG response to Lexiscan infusion 2.? No Lexiscan induced chest pain or cardiac arrhythmia. 3.? Normal blood pressure and heart rate response. 4.? Sestamibi/sestamibi perfusion scan pending; see separate report. Metabolic Diabetes Mellitus, Hyperlipidemia and Morbid Obesity Neuropsych Transient Ischemic Attack carotid stenosis Anesthetic Plan ASA status: 4 Anesthesia: MAC Risk of > 500 ml blood loss (7ml/kg in children): No Medications/Allergies Home Medications Medication Instructions Recorded Confirmed Last Taken Type coenzyme Q10 200 mg capsule (Co 200 mg PO DAILY 11/29/20 11/17/22 11/16/22 History Q-10) isosorbide mononitrate 30 mg 30 mg PO BID #180 tabs 11/30/21 11/17/22 11/16/22 Rx tablet,extended release 24 hr glipizide 5 mg tablet 5 mg PO DAILY 01/03/22 11/17/22 11/16/22 History fenofibrate nanocrystallized 145 145 mg PO DAILY 01/04/22 11/17/22 11/16/22 History mg tablet nitroglycerin 0.4 mg sublingual 0.4 mg sublingual Q5M PRN chest 03/08/22 11/17/22 Unknown Rx tablet (Nitrostat) pain #25 tabs metoprolol tartrate 50 mg tablet 50 mg PO BID #60 tabs 03/22/22 11/17/22 11/17/22 08:00 Rx furosemide 40 mg tablet 40 mg PO BID #180 tabs 05/17/22 11/17/22 11/16/22 Rx atorvastatin 40 mg tablet See Rx Instructions .Route 06/05/22 11/17/22 11/16/22 Rx .COMPLEX #90 tabs acetaminophen 500 mg tablet 500 mg PO Q6H PRN Pain 07/14/22 11/17/22 11/16/22 History amiodarone 400 mg tablet 200 mg PO DAILY #90 tabs 07/14/22 11/17/22 11/16/22 Rx multivitamil 1 tab PO DAILY 07/14/22 11/17/22 11/16/22 History metformin 500 mg tablet 500 mg PO ONCE #30 tabs 08/31/22 11/17/22 11/16/22 Rx rivaroxaban 20 mg tablet (Xarelto) 20 mg PO DAILY #90 tabs 1111/17/22 11/16/22 Rx Allergies Allergy/AdvReac Type Severity Reaction Status Date / Time yellow dye Allergy Unknown Verified 11/17/22 10:44 Current Medications Generic Name Dose Route Start Last Admin Trade Name Marifer PRN Reason Stop Dose Admin Sodium Chloride 1,000 mls @ 30 mls/hr 11/17/22 10:45 11/17/22 10:53 Sodium Chloride 0.9% IV 11/18/22 10:44 30 mls/hr .Q24H CARIE Administration PFSH Anesthesia Medical History (Updated 09/21/22 @ 16:29 by Pb Gibson MD) Anemia ASHD (arteriosclerotic heart disease) Atrial fibrillation Chronic kidney disease COPD (chronic obstructive pulmonary disease) Dyslipidemia Necrobiosis lipoidica PAD (peripheral artery disease) Pulmonary hypertension Type 2 diabetes mellitus Surgical History H/O circumcision H/O esophagogastroduodenoscopy (01/04/22) esophagitis, duodenitis Previous back surgery S/P angioplasty with stent S/P carpal tunnel release S/P cholecystectomy S/P peripheral artery angioplasty with stent placement S/P rotator cuff repair Status cardiac pacemaker Status post colonoscopy (01/04/22) Family History Other CAD (coronary artery disease) Social History Smoking and tobacco status: former smoker Alcohol intake: current Alcohol intake frequency: holidays/special occasions only Alcohol type: beer Lives independently: Yes Household members: spouse Marital status: service: Yes branch: [employer] Current occupational status: retired Current gender identity: Male Data Anesthesia Cardiac Studies: Echocardiogram 12/21/21 Sestamibi Stress Test (Cardiology) 11/28/21
--- NOTE | 2022-11-17 19:42 | ANE.PACU2 ---
Inpatient post-anesthesia follow up: Airway intact: Yes Vital signs: Temperature 97.4 F Pulse Rate 80 Respiratory Rate 18 Blood Pressure 150/89 Pulse Oximetry 96 Oxygen Delivery Me thod Room Air Oxygen Flow Rate Fraction of Inspir ed Oxygen Hydration adequate: Yes Nausea and vomiting: No Pain level: 1 Mental status: Baseline
== END 2022-11-17 12:48 | disposition home or self-care (01) ==
LOC: GILAB 10:20
PROVIDERS: PCP Registered Nurse; Visit Provider Internal Medicine
DX: Z01.818 Encounter for other preprocedural examination (principal); I25.10 Atherosclerotic heart disease of native coronary artery without angina pectoris; I10 Essential (primary) hypertension; E11.9 Type 2 diabetes mellitus without complications; E78.5 Hyperlipidemia, unspecified; E66.01 Morbid (severe) obesity due to excess calories; Z86.73 Personal history of transient ischemic attack (TIA), and cerebral infarction without residual deficits; Z79.84 Long term (current) use of oral hypoglycemic drugs; J44.9 Chronic obstructive pulmonary disease, unspecified; Z87.891 Personal history of nicotine dependence
CPT/HCPCS: 36416; 82962; 92960; 93005; 93312; 93320; 93325; J2704; J7030

== ENCOUNTER → 2022-12-11 10:02 | Outpatient (BNVA) | payer MEDICARE, BC, SELFPAY | PROVIDERS: PCP Registered Nurse; Visit Provider Registered Nurse | DX: D50.8 Other iron deficiency anemias (principal); E11.9 Type 2 diabetes mellitus without complications; E78.5 Hyperlipidemia, unspecified; I25.10 Atherosclerotic heart disease of native coronary artery without angina pectoris; I48.91 Unspecified atrial fibrillation; E11.29 Type 2 diabetes mellitus with other diabetic kidney complication | CPT/HCPCS: 80053; 80061; 82728; 83036; 83540; 85025 ==

== ENCOUNTER → 2022-12-15 09:40 | Outpatient (BNVA) | payer MEDICARE, BC, SELFPAY | PROVIDERS: PCP Registered Nurse; Visit Provider Internal Medicine | DX: I12.9 Hypertensive chronic kidney disease with stage 1 through stage 4 chronic kidney disease, or unspecified chronic kidney disease (principal); E11.22 Type 2 diabetes mellitus with diabetic chronic kidney disease; N18.9 Chronic kidney disease, unspecified; Z87.891 Personal history of nicotine dependence; Z79.84 Long term (current) use of oral hypoglycemic drugs; I48.91 Unspecified atrial fibrillation; I25.10 Atherosclerotic heart disease of native coronary artery without angina pectoris; I73.9 Peripheral vascular disease, unspecified; Z95.0 Presence of cardiac pacemaker; Z79.01 Long term (current) use of anticoagulants; E78.5 Hyperlipidemia, unspecified; R06.00 Dyspnea, unspecified | CPT/HCPCS: 99214 ==

== ENCOUNTER 2023-01-10 10:45 | Outpatient (CLI) | payer MEDICARE, BC, SELFPAY | END 2023-01-10 10:46 | disposition home or self-care (01) | LOC: RT 10:48 | PROVIDERS: PCP Registered Nurse; Visit Provider Internal Medicine | DX: R06.02 Shortness of breath (principal) | CPT/HCPCS: 94010; 94726; 94729 ==

== ENCOUNTER → 2023-03-08 09:16 | Outpatient (BNVA) | payer MEDICARE, BC, SELFPAY | PROVIDERS: PCP Registered Nurse; Visit Provider Registered Nurse | DX: N18.30 Chronic kidney disease, stage 3 unspecified (principal); E11.29 Type 2 diabetes mellitus with other diabetic kidney complication | CPT/HCPCS: 80053; 80069; 83036 ==

== ENCOUNTER → 2023-04-03 14:07 | Outpatient (BNVA) | payer MEDICARE, BC, SELFPAY | PROVIDERS: PCP Registered Nurse; Visit Provider Podiatrist Foot & Ankle Surgery | DX: I73.9 Peripheral vascular disease, unspecified (principal); B35.1 Tinea unguium; L84 Corns and callosities; E11.51 Type 2 diabetes mellitus with diabetic peripheral angiopathy without gangrene | CPT/HCPCS: 11056; 11721; 99204 ==

== ENCOUNTER → 2023-04-23 11:20 | Outpatient (BNVA) | payer MEDICARE, BC, SELFPAY | PROVIDERS: PCP Registered Nurse; Visit Provider Internal Medicine Pulmonary Disease | DX: J30.2 Other seasonal allergic rhinitis (principal); G47.33 Obstructive sleep apnea (adult) (pediatric); Z79.899 Other long term (current) drug therapy | CPT/HCPCS: 36415; 82785; 86003; 99204 ==

== ENCOUNTER → 2023-06-11 10:05 | Outpatient (BNVA) | payer MEDICARE, BC, SELFPAY | PROVIDERS: PCP Registered Nurse; Visit Provider Podiatrist Foot & Ankle Surgery | DX: I73.9 Peripheral vascular disease, unspecified; B35.1 Tinea unguium; L84 Corns and callosities; E11.51 Type 2 diabetes mellitus with diabetic peripheral angiopathy without gangrene | CPT/HCPCS: 11721; 73610; 99213 ==

== ENCOUNTER → 2023-06-15 09:29 | Outpatient (BNVA) | payer MEDICARE, BC, SELFPAY | PROVIDERS: PCP Registered Nurse; Visit Provider Internal Medicine | DX: I12.9 Hypertensive chronic kidney disease with stage 1 through stage 4 chronic kidney disease, or unspecified chronic kidney disease (principal); E11.22 Type 2 diabetes mellitus with diabetic chronic kidney disease; N18.9 Chronic kidney disease, unspecified; Z79.84 Long term (current) use of oral hypoglycemic drugs; I48.91 Unspecified atrial fibrillation; I25.10 Atherosclerotic heart disease of native coronary artery without angina pectoris; I73.9 Peripheral vascular disease, unspecified; Z95.0 Presence of cardiac pacemaker; Z79.01 Long term (current) use of anticoagulants; E78.5 Hyperlipidemia, unspecified; R06.00 Dyspnea, unspecified; Z87.891 Personal history of nicotine dependence | CPT/HCPCS: 99214 ==

== ENCOUNTER 2023-06-20 20:00 | Outpatient (CLI) | payer MEDICARE, BC, SELFPAY | END 2023-06-20 20:01 | disposition home or self-care (01) | LOC: SLEEP 06-21 05:13 | PROVIDERS: PCP Registered Nurse; Visit Provider Internal Medicine Pulmonary Disease | DX: G47.33 Obstructive sleep apnea (adult) (pediatric) (principal) | CPT/HCPCS: 95811 ==

== ENCOUNTER → 2023-07-06 09:29 | Outpatient (BNVA) | payer MEDICARE, BC, SELFPAY | PROVIDERS: PCP Registered Nurse; Visit Provider Internal Medicine Pulmonary Disease | DX: J45.998 Other asthma (principal); Z77.120 Contact with and (suspected) exposure to mold (toxic); I27.20 Pulmonary hypertension, unspecified; G47.33 Obstructive sleep apnea (adult) (pediatric); Z87.891 Personal history of nicotine dependence | CPT/HCPCS: 99214 ==

== ENCOUNTER 2023-07-13 09:21 | Outpatient (CLI) | payer MEDICARE, BC, SELFPAY ==
[2023-07-13 10:02] LABS: Basophils % 0.6 %; Eosinophils # 0.2 10^3/uL (0.0-0.8); Eosinophils % 3.3 %; Hematocrit 50.3 % (37-53); Lymphocytes # 1.5 10^3/uL (0.8-4.8); Lymphocytes % 21.9 %; Mean Corpuscular HGB Conc 32.4 g/dL (30-55); Mean Corpuscular Hemoglobin 28.8 pg (27-33); Mean Corpuscular Volume 88.9 fl (82-101); Mean Platelet Volume 9.2 fL (7.4-10.4); Monocytes # 0.6 10^3/uL (0.2-0.9); Monocytes % 8.6 %; Neutrophils # 4.38 10^3/uL (1.8-7.7); Neutrophils % 64.9 %; Nucleated Red Blood Cells % 0 %; Platelet Count 206 10^3/cmm (157-399); Red Blood Count 5.66 10^6/uL (3.85-5.65); Red Cell Distribution Width 14.8 % (12.1-15.1); White Blood Count 6.75 10^3/uL (3.29-11.43)
[2023-07-13 10:22] LABS: Creatinine Urine, Random 16 mg/dL (39-259); Microalbumin Random Urine 1 ug/dL (0-20)
[2023-07-13 10:23] LABS: Microalbum Creatinine Ratio Ur 63 mg/dL (0-20)
[2023-07-13 10:27] LABS: Albumin Level 4.3 g/dL (3.5-5.2); Blood Urea Nitrogen 23 mg/dL (8-23); Calcium 9.4 mg/dL (8.5-10.5); Carbon Dioxide 28 mmol/L (22-29); Chloride 99 mmol/L (98-107); Glucose 145 mg/dL (65-115); Phosphorus 3.3 mg/dL (2.5-4.5); Sodium 137 mmol/L (136-145)
[2023-07-13 10:28] LABS: Calcium 9.5 mg/dL (8.5-10.5)
[2023-07-13 10:31] LABS: Anion Gap 14.9 (5-19); Potassium 4.9 mmol/L (3.5-5.1)
[2023-07-13 10:35] LABS: Parathyroid Hormone 50.4 pg/mL (15-65)
[2023-07-13 10:43] LABS: 25 Hydroxy Vitamin D 29 ng/mL (30-100)
[2023-07-19 13:53] LABS: Pigeon Serum Ab NEGATIVE (NEGATIVE); Thermoactinomyces candidus Ab NEGATIVE (NEGATIVE)
== END 2023-07-13 09:22 | disposition home or self-care (01) ==
PROVIDERS: Absent Provider Internal Medicine; PCP Registered Nurse; Visit Provider Internal Medicine Pulmonary Disease
DX: Z77.120 Contact with and (suspected) exposure to mold (toxic) (principal); N18.31 Chronic kidney disease, stage 3a; Z79.899 Other long term (current) drug therapy
CPT/HCPCS: 36415; 80069; 82044; 82306; 82310; 83970; 85025; 86331; 86606; 86609

== ENCOUNTER 2023-07-23 16:08 | Outpatient (CLI) | payer MEDICARE, BC, SELFPAY ==
--- NOTE | 2023-07-23 | US_ITS ---
WS: [id number] RENAL ULTRASOUND HISTORY: STG 3 CKD COMPARISON: None available. TECHNIQUE: 2-D and color Doppler imaging of the kidney submitted. Right kidney: 11.8 cm x 5.2 cm x 5.8 cm. Cortex: 1.4 cm Normal size kidney. Cyst in the inferior renal pelvis measures 3.1 x 1.4 x 1.7 cm. No solid mass. The re is an additional smaller exophytic cyst from the inferior pole cortex measuring 1.4 x 1.0 x 1.2 cm . Left kidney: 11.1 cm x 4.8 cm x 4.7 cm. Cortex: 1.2 cm Normal echogenicity with no hydronephrosis or mass. Aorta: Normal. Urinary Bladder: Normal distention. IMPRESSION: 1. No renal atrophy or obstruction. 2. RIGHT renal cyst x2. No solid mass.
== END 2023-07-23 16:09 | disposition home or self-care (01) ==
LOC: RAD 16:09
PROVIDERS: PCP Registered Nurse; Visit Provider Internal Medicine
DX: N18.31 Chronic kidney disease, stage 3a (principal); N28.1 Cyst of kidney, acquired
CPT/HCPCS: 76770

== ENCOUNTER → 2023-08-24 08:27 | Outpatient (BNVA) | payer MEDICARE, BC, SELFPAY | PROVIDERS: PCP Registered Nurse; Visit Provider Podiatrist Foot & Ankle Surgery | DX: E11.51 Type 2 diabetes mellitus with diabetic peripheral angiopathy without gangrene (principal); B35.1 Tinea unguium; L84 Corns and callosities; I73.9 Peripheral vascular disease, unspecified; M76.821 Posterior tibial tendinitis, right leg | CPT/HCPCS: 11721; 99213 ==

== ENCOUNTER → 2023-09-24 08:10 | Outpatient (BNVA) | payer MEDICARE, BC, SELFPAY | PROVIDERS: PCP Registered Nurse; Visit Provider Registered Nurse | DX: E11.29 Type 2 diabetes mellitus with other diabetic kidney complication; N18.30 Chronic kidney disease, stage 3 unspecified | CPT/HCPCS: 83036 ==

== ENCOUNTER → 2023-10-03 09:27 | Outpatient (BNVA) | payer MEDICARE, BC, SELFPAY | PROVIDERS: PCP Registered Nurse; Visit Provider Registered Nurse | DX: I10 Essential (primary) hypertension (principal); D64.9 Anemia, unspecified; D50.9 Iron deficiency anemia, unspecified; E11.29 Type 2 diabetes mellitus with other diabetic kidney complication | CPT/HCPCS: 85025 ==

== ENCOUNTER → 2023-10-15 07:57 | Outpatient (BNVA) | payer MEDICARE, BC, SELFPAY | PROVIDERS: PCP Registered Nurse; Visit Provider Internal Medicine Pulmonary Disease | DX: J45.20 Mild intermittent asthma, uncomplicated (principal); I27.20 Pulmonary hypertension, unspecified; G47.33 Obstructive sleep apnea (adult) (pediatric); Z77.120 Contact with and (suspected) exposure to mold (toxic); Z99.89 Dependence on other enabling machines and devices; Z87.891 Personal history of nicotine dependence | CPT/HCPCS: 99214 ==

== ENCOUNTER → 2023-11-12 08:29 | Outpatient (BNVA) | payer MEDICARE, BC, SELFPAY | PROVIDERS: PCP Registered Nurse; Visit Provider Podiatrist Foot & Ankle Surgery | DX: B35.1 Tinea unguium (principal); L84 Corns and callosities; I73.9 Peripheral vascular disease, unspecified; E11.51 Type 2 diabetes mellitus with diabetic peripheral angiopathy without gangrene; M25.571 Pain in right ankle and joints of right foot; N18.30 Chronic kidney disease, stage 3 unspecified; E11.29 Type 2 diabetes mellitus with other diabetic kidney complication | CPT/HCPCS: 11721 ==

== ENCOUNTER 2023-11-20 11:51 | Outpatient (CLI) | payer MEDICARE, BC, SELFPAY ==
[2023-11-20 12:45] LABS: Albumin Level 4.1 g/dL (3.5-5.2); Anion Gap 15.3 (5-19); Blood Urea Nitrogen 20 mg/dL (8-23); Calcium 9.9 mg/dL (8.5-10.5); Carbon Dioxide 27 mmol/L (22-29); Chloride 101 mmol/L (98-107); Glomerular Filtration Rate 66.2 mL/min (90-130); Glucose 195 mg/dL (65-115); Phosphorus 2.9 mg/dL (2.5-4.5); Potassium 4.3 mmol/L (3.5-5.1); Sodium 139 mmol/L (136-145)
[2023-11-20 12:51] LABS: Calcium 9.8 mg/dL (8.5-10.5)
[2023-11-20 12:56] LABS: Parathyroid Hormone 32.4 pg/mL (15-65)
[2023-11-20 12:58] LABS: Creatinine Urine, Random 11 mg/dL (39-259); Microalbumin Random Urine 1 ug/dL (0-20)
[2023-11-20 12:59] LABS: Microalbum Creatinine Ratio Ur 91 mg/dL (0-20)
== END 2023-11-20 11:52 | disposition home or self-care (01) ==
LOC: LAB 11:54
PROVIDERS: PCP Registered Nurse; Visit Provider Internal Medicine
DX: N18.31 Chronic kidney disease, stage 3a (principal)
CPT/HCPCS: 36415; 80069; 82044; 82310; 83970

== ENCOUNTER → 2024-01-11 08:42 | Outpatient (BNVA) | payer MEDICARE, SELFPAY | PROVIDERS: PCP Registered Nurse; Visit Provider Nurse Practitioner Family | DX: I48.21 Permanent atrial fibrillation (principal); I73.9 Peripheral vascular disease, unspecified; Z95.0 Presence of cardiac pacemaker; I25.10 Atherosclerotic heart disease of native coronary artery without angina pectoris; Z79.01 Long term (current) use of anticoagulants; I12.9 Hypertensive chronic kidney disease with stage 1 through stage 4 chronic kidney disease, or unspecified chronic kidney disease; N18.9 Chronic kidney disease, unspecified; Z87.891 Personal history of nicotine dependence | CPT/HCPCS: 99214 ==

== ENCOUNTER → 2024-01-14 08:13 | Outpatient (BNVA) | payer MEDICARE, SELFPAY | PROVIDERS: PCP Registered Nurse; Visit Provider Podiatrist Foot & Ankle Surgery | DX: B35.1 Tinea unguium (principal); L84 Corns and callosities; I73.9 Peripheral vascular disease, unspecified; E11.51 Type 2 diabetes mellitus with diabetic peripheral angiopathy without gangrene; M25.571 Pain in right ankle and joints of right foot; N18.30 Chronic kidney disease, stage 3 unspecified; E11.29 Type 2 diabetes mellitus with other diabetic kidney complication | CPT/HCPCS: 11055; 11721 ==

== ENCOUNTER → 2024-02-07 13:56 | Outpatient (BNVA) | payer MEDICARE, BC, SELFPAY | PROVIDERS: PCP Registered Nurse; Visit Provider Registered Nurse | DX: R39.9 Unspecified symptoms and signs involving the genitourinary system (principal); R36.1 Hematospermia; Z12.5 Encounter for screening for malignant neoplasm of prostate | CPT/HCPCS: 80053; 81000; 85025; G0103 ==

== ENCOUNTER → 2024-02-21 09:33 | Outpatient (BNVA) | payer MEDICARE, BC, SELFPAY | PROVIDERS: PCP Registered Nurse; Visit Provider Registered Nurse | DX: N18.30 Chronic kidney disease, stage 3 unspecified (principal); N50.89 Other specified disorders of the male genital organs | CPT/HCPCS: 80048 ==

== ENCOUNTER 2024-02-29 09:14 | Outpatient (CLI) | payer MEDICARE, BC, SELFPAY ==
--- NOTE | 2024-02-29 09:30 | US_ITS ---
WS: [id number] TESTICULAR ULTRASOUND HISTORY: N50.89 - Other specified disorders of the male genital or... COMPARISON: None available. TECHNIQUE: Real-time and color Doppler imaging or utilized to perform a testicular ultrasound. Right testicle: 3.8 cm x 3.5 cm x 1.9 cm. Normal size and echogenicity. No mass or torsion. Normal color Doppler is present throughout. Systolic and diastolic velocities are both present. Small simple hydrocele. Right epididymis: Mildly enlarged epididymis with a few small spermatoceles. Mild RIGHT varicocele. Left testicle: 3.7 cm x 2.2 cm x 2.7 cm. Normal size and echogenicity. No mass or torsion. Normal color Doppler is present throughout. Systolic and diastolic velocities are both present. No significant hydrocele. Left epididymis: Normal epididymis with no increased vascularity. Moderate varicocele. IMPRESSION: 1. No testicular mass or torsion. 2. Bilateral varicoceles, LEFT greater than RIGHT. 3. No epididymal mass.
== END 2024-02-29 09:15 | disposition home or self-care (01) ==
LOC: RAD 09:14
PROVIDERS: PCP Registered Nurse; Visit Provider Registered Nurse
DX: N50.89 Other specified disorders of the male genital organs (principal); I86.1 Scrotal varices
CPT/HCPCS: 76870

== ENCOUNTER → 2024-03-07 09:21 | Outpatient (BNVA) | payer MEDICARE, BC, SELFPAY | PROVIDERS: PCP Registered Nurse; Visit Provider Registered Nurse | DX: E11.29 Type 2 diabetes mellitus with other diabetic kidney complication (principal); E11.9 Type 2 diabetes mellitus without complications | CPT/HCPCS: 83036 ==

== ENCOUNTER → 2024-03-11 08:30 | Outpatient (BNVA) | payer MEDICARE, BC, SELFPAY | PROVIDERS: PCP Registered Nurse; Visit Provider Podiatrist Foot & Ankle Surgery | DX: B35.1 Tinea unguium (principal); L84 Corns and callosities; I73.9 Peripheral vascular disease, unspecified; E11.51 Type 2 diabetes mellitus with diabetic peripheral angiopathy without gangrene; N18.30 Chronic kidney disease, stage 3 unspecified; E11.29 Type 2 diabetes mellitus with other diabetic kidney complication | CPT/HCPCS: 11055; 11721 ==

== ENCOUNTER → 2024-04-16 08:17 | Outpatient (BNVA) | payer MEDICARE, SELFPAY | PROVIDERS: PCP Registered Nurse; Visit Provider Internal Medicine Pulmonary Disease | DX: R06.00 Dyspnea, unspecified (principal); J45.20 Mild intermittent asthma, uncomplicated; I27.20 Pulmonary hypertension, unspecified; G47.33 Obstructive sleep apnea (adult) (pediatric); Z77.120 Contact with and (suspected) exposure to mold (toxic); Z87.891 Personal history of nicotine dependence | CPT/HCPCS: 99214 ==

== ENCOUNTER → 2024-05-15 08:22 | Outpatient (BNVA) | payer MEDICARE, BC, SELFPAY | PROVIDERS: PCP Registered Nurse; Visit Provider Podiatrist Foot & Ankle Surgery | DX: B35.1 Tinea unguium (principal); L84 Corns and callosities; I73.9 Peripheral vascular disease, unspecified; E11.51 Type 2 diabetes mellitus with diabetic peripheral angiopathy without gangrene; M25.571 Pain in right ankle and joints of right foot; N18.30 Chronic kidney disease, stage 3 unspecified; E11.29 Type 2 diabetes mellitus with other diabetic kidney complication | CPT/HCPCS: 11721 ==

== ENCOUNTER 2024-06-11 11:07 | Outpatient (CLI) | payer MEDICARE, BC, SELFPAY ==
[2024-06-11 12:05] LABS: Anion Gap 16.7 (5-19); Blood Urea Nitrogen 25 mg/dL (8-23); Calcium 9.6 mg/dL (8.5-10.5); Carbon Dioxide 26 mmol/L (22-29); Chloride 107 mmol/L (98-107); Glomerular Filtration Rate 50.1 mL/min (90-130); Glucose 145 mg/dL (65-115); Osmolality Calculated 307 mOsm/kg (285-295); Potassium 4.7 mmol/L (3.5-5.1); Sodium 145 mmol/L (136-145)
== END 2024-06-11 11:08 | disposition home or self-care (01) ==
LOC: LAB 11:09
PROVIDERS: PCP Registered Nurse; Visit Provider Nurse Practitioner Family
DX: N18.31 Chronic kidney disease, stage 3a (principal)
CPT/HCPCS: 36415; 80048

== ENCOUNTER → 2024-07-24 14:48 | Outpatient (BNVA) | payer MEDICARE, BC, SELFPAY | PROVIDERS: PCP Registered Nurse; Visit Provider Internal Medicine | DX: I73.9 Peripheral vascular disease, unspecified (principal); M79.604 Pain in right leg; M79.605 Pain in left leg; I10 Essential (primary) hypertension; I48.21 Permanent atrial fibrillation; I25.10 Atherosclerotic heart disease of native coronary artery without angina pectoris; Z95.0 Presence of cardiac pacemaker; Z79.01 Long term (current) use of anticoagulants; E78.5 Hyperlipidemia, unspecified; E11.29 Type 2 diabetes mellitus with other diabetic kidney complication; R06.00 Dyspnea, unspecified | CPT/HCPCS: 99214 ==

== ENCOUNTER 2024-08-11 15:24 | Outpatient (CLI) | payer MEDICARE, BC, SELFPAY ==
--- NOTE | 2024-08-11 15:45 | USCV_ITS ---
Tracey Cornel Age: 68 Gender: M : 1955 Exam Date: 08/11/2024 15:46 Ordering Phys: Maulik Maravilla M.D ([email or web address]) Technologist: IVETTE [place] [facility] [place]: Risk Factors: Previous Vascular Surgery: RIGHT LEFT BP: 136.0 / 64.00 BP: 144.0/ 57.00 0 0 Waveform Velocity (cm/s) Velocity (cm/s) Waveform Monophasic 191.9 Iliac Prox 116.9 Biphasic Monophasic 148.8 Iliac Mid 124.1 Biphasic Monophasic 106.6 Iliac Distal 169.2 Monophasic Monophasic 110.0 TRANSIT CLERK 221.0 Monophasic Monophasic 19.0 SFA Prox 186.0 Biphasic Monophasic 17.0 SFA Mid 177.0 Biphasic Monophasic 20.0 SFA Dist 120.0 Monophasic Monophasic 19.0 POP 120.0 Monophasic Monophasic 50.0 IOS SOFTWARE ENGINEER 65.0 Biphasic Monophasic 47.0 DPA 79.0 Monophasic ISAEL 0.8 0.9 FINDINGS Mild to moderate diffuse plaque in the iliac and femoral artery on the right side. Moderate diffuse plaque in the iliac, femoral and popliteal artery on the left side. Resting ISAEL of 0.9 on the right Resting ISAEL 0.8 on the left CONCLUSIONS Abnormal resting ISAEL of 0.9 suggesting mild peripheral artery disease in the right Abnormal resting ISAEL of 0.8 suggesting mild to moderate peripheral artery disease in the left side Dr Leeann Issa MD [facility] (Electronically Signed) Final Date: 12 August 2024 00:26 S
== END 2024-08-11 15:25 | disposition home or self-care (01) ==
LOC: RAD 15:24
PROVIDERS: PCP Registered Nurse; Visit Provider Internal Medicine
DX: I73.9 Peripheral vascular disease, unspecified (principal); M79.604 Pain in right leg; M79.605 Pain in left leg
CPT/HCPCS: 93925

== ENCOUNTER → 2024-08-13 08:42 | Outpatient (BNVA) | payer MEDICARE, BC, SELFPAY | PROVIDERS: PCP Registered Nurse; Visit Provider Registered Nurse | DX: E11.9 Type 2 diabetes mellitus without complications (principal) | CPT/HCPCS: 80053; 83036 ==

== ENCOUNTER → 2024-09-18 09:10 | Outpatient (BNVA) | payer MEDICARE, BC, SELFPAY | PROVIDERS: PCP Registered Nurse; Visit Provider Podiatrist Foot & Ankle Surgery | DX: B35.1 Tinea unguium (principal); L84 Corns and callosities; I73.9 Peripheral vascular disease, unspecified; E11.51 Type 2 diabetes mellitus with diabetic peripheral angiopathy without gangrene; M25.571 Pain in right ankle and joints of right foot; N18.30 Chronic kidney disease, stage 3 unspecified; E11.29 Type 2 diabetes mellitus with other diabetic kidney complication | CPT/HCPCS: 11721 ==

== ENCOUNTER → 2024-10-20 11:15 | Outpatient (BNVA) | payer MEDICARE, BC, SELFPAY | PROVIDERS: PCP Registered Nurse; Visit Provider Registered Nurse | DX: D50.9 Iron deficiency anemia, unspecified (principal) | CPT/HCPCS: 80053; 82728; 83550; 85025 ==

== ENCOUNTER 2024-11-03 10:31 | Outpatient (CLI) | payer MEDICARE, BC, SELFPAY ==
[2024-11-03 10:57] LABS: Basophils % 0.6 %; Eosinophils # 0.1 10^3/uL (0.0-0.8); Eosinophils % 1.8 %; Hematocrit 48.9 % (37-53); Lymphocytes # 1.4 10^3/uL (0.8-4.8); Mean Corpuscular HGB Conc 32.3 g/dL (30-55); Mean Corpuscular Hemoglobin 29.5 pg (27-33); Mean Corpuscular Volume 91.4 fl (82-101); Mean Platelet Volume 9.7 fL (7.4-10.4); Monocytes # 0.7 10^3/uL (0.2-0.9); Monocytes % 9.2 %; Neutrophils # 4.88 10^3/uL (1.8-7.7); Neutrophils % 68.8 %; Nucleated Red Blood Cells % 0 %; Platelet Count 181 10^3/cmm (157-399); Red Blood Count 5.35 10^6/uL (3.85-5.65); Red Cell Distribution Width 13.7 % (12.1-15.1); White Blood Count 7.09 10^3/uL (3.29-11.43)
[2024-11-03 11:16] LABS: Albumin Level 4.2 g/dL (3.5-5.2); Anion Gap 15.5 (5-19); Blood Urea Nitrogen 20 mg/dL (8-23); Calcium 9.7 mg/dL (8.5-10.5); Carbon Dioxide 27 mmol/L (22-29); Chloride 101 mmol/L (98-107); Glomerular Filtration Rate 59.9 mL/min (90-130); Glucose 180 mg/dL (65-115); Phosphorus 3.1 mg/dL (2.5-4.5); Potassium 4.5 mmol/L (3.5-5.1); Sodium 139 mmol/L (136-145)
[2024-11-03 11:17] LABS: Calcium 9.9 mg/dL (8.5-10.5)
[2024-11-03 11:23] LABS: Parathyroid Hormone 46.9 pg/mL (15-65)
[2024-11-03 11:25] LABS: Creatinine Urine, Random 13 mg/dL (39-259); Microalbumin Random Urine 1 ug/dL (0-20)
[2024-11-03 11:26] LABS: Microalbum Creatinine Ratio Ur 77 mg/dL (0-20)
== END 2024-11-03 10:32 | disposition home or self-care (01) ==
LOC: LAB 10:33
PROVIDERS: PCP Registered Nurse; Visit Provider Nurse Practitioner Family
DX: N18.31 Chronic kidney disease, stage 3a (principal); I50.30 Unspecified diastolic (congestive) heart failure
CPT/HCPCS: 36415; 80069; 82044; 82310; 83970; 85025

== ENCOUNTER → 2025-01-05 14:49 | Outpatient (BNVA) | payer MEDICARE, SELFPAY | PROVIDERS: PCP Registered Nurse; Visit Provider Podiatrist Foot & Ankle Surgery | DX: I73.9 Peripheral vascular disease, unspecified (principal); B35.1 Tinea unguium; L84 Corns and callosities; N18.30 Chronic kidney disease, stage 3 unspecified; E11.29 Type 2 diabetes mellitus with other diabetic kidney complication; M25.80 Other specified joint disorders, unspecified joint; L90.9 Atrophic disorder of skin, unspecified | CPT/HCPCS: 11721; 99213 ==

== ENCOUNTER → 2025-01-29 13:13 | Outpatient (BNVA) | payer MEDICARE, SELFPAY | PROVIDERS: PCP Registered Nurse; Visit Provider Internal Medicine | DX: I48.21 Permanent atrial fibrillation (principal); Z79.01 Long term (current) use of anticoagulants; R06.00 Dyspnea, unspecified; I12.9 Hypertensive chronic kidney disease with stage 1 through stage 4 chronic kidney disease, or unspecified chronic kidney disease; N18.9 Chronic kidney disease, unspecified; E11.22 Type 2 diabetes mellitus with diabetic chronic kidney disease; I25.10 Atherosclerotic heart disease of native coronary artery without angina pectoris; I73.9 Peripheral vascular disease, unspecified; E78.5 Hyperlipidemia, unspecified; Z95.5 Presence of coronary angioplasty implant and graft; Z95.0 Presence of cardiac pacemaker; Z87.891 Personal history of nicotine dependence | CPT/HCPCS: 99214 ==

== ENCOUNTER → 2025-02-23 10:17 | Outpatient (BNVA) | payer MEDICARE, SELFPAY | PROVIDERS: PCP Registered Nurse; Visit Provider Registered Nurse | DX: E11.9 Type 2 diabetes mellitus without complications (principal); E11.29 Type 2 diabetes mellitus with other diabetic kidney complication | CPT/HCPCS: 80053; 80061; 83036; 85025 ==

== ENCOUNTER 2025-03-05 09:11 | Outpatient (CLI) | payer MEDICARE, SELFPAY ==
--- NOTE | 2025-03-05 09:15 | USCV_ITS ---
Cornel Webb Age: 69 Gender: M : 1955 Exam Date: 03/05/2025 09:21 Ordering Phys: Maulik Maravilla M.D ([email or web address]) Technologist: CHRISTOPHER [place]am Location[place] [facility] [place]ication: CP, SOB BP: 118 / 50 HR: 60 Rhythm: Sinus Technical Quality: Adequate MEASUREMENTS (Male / Female) Normal Values 2D ECHO LV Diastolic Diameter PLAX 5.3 cm 4.2 - 5.9 / 3.9 - 5.3 cm IVS Diastolic Thickness 1.1 cm 0.6 - 1.0 / 0.6 - 0.9 cm IVS Systolic Thickness 1.5 cm LVPW Diastolic Thickness 1.4 cm 0.6 - 1.0 / 0.6 - 0.9 cm LVPW Systolic Thickness 1.7 cm LVOT Diameter 2.0 cm LV Ejection Fraction 2D Teich 58.5 % LV Ejection Fraction MOD 4C 57.4 % LV Ejection Fraction MOD 2C 51.8 % LV Ejection Fraction 2C AL 53.1 % LA Diameter 4.2 cm RA Systolic Volume 4C AL 54.7 ml RA Systolic Volume 4C MOD 53.4 ml Aorta at Sinotubular Diameter 2.2 cm IVC Diameter 2.2 cm M-MODE LA Ao Ratio MM 1.9 AV Cusp Separation MM 1.4 cm DOPPLER AV Peak Velocity 119.0 cm/s LVOT Peak Velocity 108.0 cm/s AV Area Cont Eq vti 2.9 cm squared AV Area Cont Eq pk 2.9 cm squared MV Peak Velocity 131.0 cm/s MV Area PHT 3.6 cm squared Mitral E to A Ratio 3.2 TV Peak Velocity 267.0 cm/s TR Peak Velocity 318.0 cm/s TR Peak Gradient 40.4 mmHg TV Peak E Velocity 112.0 cm/s PV Peak Velocity 88.0 cm/s FINDINGS Left Ventricle Normal left ventricular size, systolic function and wall thickness, with no regional wall motion abnormalities. Left ventricular ejection fraction is estimated at 58 %. Grade III/IV diastolic dysfunction (restrictive filling pattern), severely elevated filling pressures. Right Ventricle The right ventricle is normal in size and function. Right Atrium The right atrium is normal in size. Left Atrium Moderately increased left atrial size. Mitral Valve Moderately thickened mitral valve. No mitral valve stenosis. Mild-moderate mitral valve regurgitation. Aortic Valve Moderate aortic valve calcification. No aortic valve stenosis. Trace aortic valve regurgitation. Tricuspid Valve Structurally normal tricuspid valve without significant stenosis or regurgitation. Pulmonary artery systolic pressure is normal. Pulmonic Valve Structurally normal pulmonic valve without significant stenosis. There is no pulmonic regurgitation. Pericardium Normal pericardium without effusion. Aorta Normal ascending aorta dimension. IVC The inferior vena cava appears normal. CONCLUSIONS Normal left ventricular size, systolic function and wall thickness, with no regional wall motion abnormalities. Left ventricular ejection fraction is estimated at 58 %. Grade III/IV diastolic dysfunction (restrictive filling pattern), severely elevated filling pressures. Moderate aortic valve calcification. No aortic valve stenosis. Trace aortic valve regurgitation. Moderately thickened mitral valve. No mitral valve stenosis. Mild-moderate mitral valve regurgitation. There is no pericardial effusion. Right atrial pressure is around 5 mm of mercury. Chicho Monge MD (Electronically Signed) Final Date: 06 Mar 2025 13:02 S
== END 2025-03-05 09:12 | disposition home or self-care (01) ==
PROVIDERS: PCP Registered Nurse; Visit Provider Internal Medicine
DX: R06.00 Dyspnea, unspecified (principal); R07.9 Chest pain, unspecified; R93.1 Abnormal findings on diagnostic imaging of heart and coronary circulation; I51.7 Cardiomegaly; I34.0 Nonrheumatic mitral (valve) insufficiency; I35.8 Other nonrheumatic aortic valve disorders
CPT/HCPCS: 93306

== ENCOUNTER → 2025-03-10 08:36 | Outpatient (BNVA) | payer MEDICARE, SELFPAY | PROVIDERS: PCP Registered Nurse; Visit Provider Podiatrist Foot & Ankle Surgery | DX: E11.29 Type 2 diabetes mellitus with other diabetic kidney complication (principal); B35.1 Tinea unguium; L84 Corns and callosities; I73.9 Peripheral vascular disease, unspecified; N18.30 Chronic kidney disease, stage 3 unspecified | CPT/HCPCS: 11056; 11721 ==

== ENCOUNTER 2025-03-12 09:48 | Outpatient (CLI) | payer MEDICARE, SELFPAY ==
--- NOTE | 2025-03-12 10:15 | CT_ITS ---
WS: [id number] LDCT LUNG CANCER SCREENING TECHNIQUE: Noncontrast CT of the chest with coronal and sagittal reformatted images. CLINICAL INFORMATION: Z87.891 - Personal history of nicotine dependence COMPARISON: None. DLP: 101.71 mGy.cm DIvol: Mean CTDIvol: 2.30 (mGy) All CT scans at [facility] use at least one of these dose optimization techniques: automated exposure control; mA and/or kV adjustment per patient size (includes targeted exams where dose is matched to clinical indication); or iterative reconstruction. FINDINGS: A few tiny scattered micronodules. Calcified granuloma LEFT lower lobe. Atelectasis in the lung bases. No other suspicious pulmonary parenchymal abnormalities. Aortic calcification. CABG. Normal caliber thoracic aorta. Calcified granulomas LEFT lower lobe. Small LEFT adrenal adenoma. Normal RIGHT adrenal gland. Splenic artery calcification. Tiny esophageal hiatal hernia. CT/CT lung screening [id number] IMPRESSION: LUNG-RADS: 2-Benign Appearance or Behavior FOLLOW UP: 12 Month: Continue annual screening with LDCT
== END 2025-03-12 09:49 | disposition home or self-care (01) ==
LOC: RAD 09:48
PROVIDERS: PCP Registered Nurse; Visit Provider Registered Nurse
DX: Z12.2 Encounter for screening for malignant neoplasm of respiratory organs (principal); Z87.891 Personal history of nicotine dependence; J84.10 Pulmonary fibrosis, unspecified; J98.11 Atelectasis; I70.0 Atherosclerosis of aorta; Z98.890 Other specified postprocedural states; D35.02 Benign neoplasm of left adrenal gland; I70.8 Atherosclerosis of other arteries
CPT/HCPCS: 71271

== ENCOUNTER 2025-05-06 11:52 | Outpatient (CLI) | payer MEDICARE, SELFPAY ==
[2025-05-06 13:43] LABS: Creatinine Urine, Random 22 mg/dL (39-259)
[2025-05-06 13:47] LABS: Microalbum Creatinine Ratio Ur 45 mg/dL (0-20)
[2025-05-06 14:07] LABS: Albumin Level 4.2 g/dL (3.5-5.2); Anion Gap 17.5 (5-19); Blood Urea Nitrogen 27 mg/dL (8-23); Calcium 9.4 mg/dL (8.5-10.5); Carbon Dioxide 27 mmol/L (22-29); Chloride 102 mmol/L (98-107); Glucose 268 mg/dL (65-115); Potassium 4.5 mmol/L (3.5-5.1); Sodium 142 mmol/L (136-145)
[2025-05-06 14:14] LABS: Calcium 9.3 mg/dL (8.5-10.5)
== END 2025-05-06 11:53 | disposition home or self-care (01) ==
PROVIDERS: PCP Registered Nurse; Visit Provider Internal Medicine
DX: N18.31 Chronic kidney disease, stage 3a (principal)
CPT/HCPCS: 36415; 80069; 82044; 82306; 82310; 83970

== ENCOUNTER → 2025-05-12 08:38 | Outpatient (BNVA) | payer MEDICARE, SELFPAY | PROVIDERS: PCP Registered Nurse; Visit Provider Podiatrist Foot & Ankle Surgery | DX: I73.9 Peripheral vascular disease, unspecified (principal); B35.1 Tinea unguium; L84 Corns and callosities; N18.30 Chronic kidney disease, stage 3 unspecified; E11.29 Type 2 diabetes mellitus with other diabetic kidney complication | CPT/HCPCS: 11721 ==

== ENCOUNTER → 2025-06-08 09:24 | Outpatient (BNVA) | payer MEDICARE, SELFPAY | PROVIDERS: PCP Registered Nurse; Visit Provider Registered Nurse | DX: E11.9 Type 2 diabetes mellitus without complications (principal) | CPT/HCPCS: 80048; 83036 ==

== ENCOUNTER → 2025-08-03 13:41 | Outpatient (BNVA) | payer MEDICARE, SELFPAY | PROVIDERS: PCP Registered Nurse; Visit Provider Internal Medicine | DX: I12.9 Hypertensive chronic kidney disease with stage 1 through stage 4 chronic kidney disease, or unspecified chronic kidney disease (principal); E11.22 Type 2 diabetes mellitus with diabetic chronic kidney disease; N18.9 Chronic kidney disease, unspecified; I48.21 Permanent atrial fibrillation; I25.10 Atherosclerotic heart disease of native coronary artery without angina pectoris; Z95.0 Presence of cardiac pacemaker; Z79.01 Long term (current) use of anticoagulants; E78.5 Hyperlipidemia, unspecified; R06.09 Other forms of dyspnea; E11.51 Type 2 diabetes mellitus with diabetic peripheral angiopathy without gangrene; Z87.891 Personal history of nicotine dependence; Z79.84 Long term (current) use of oral hypoglycemic drugs | CPT/HCPCS: 99213 ==

== ENCOUNTER → 2025-08-12 08:22 | Outpatient (BNVA) | payer MEDICARE, SELFPAY | PROVIDERS: PCP Registered Nurse; Visit Provider Podiatrist Foot & Ankle Surgery | DX: E11.29 Type 2 diabetes mellitus with other diabetic kidney complication (principal); B35.1 Tinea unguium; L84 Corns and callosities; I73.9 Peripheral vascular disease, unspecified; N18.30 Chronic kidney disease, stage 3 unspecified; M76.70 Peroneal tendinitis, unspecified leg | CPT/HCPCS: 11721; 99213 ==

== ENCOUNTER → 2025-09-17 10:44 | Outpatient (BNVA) | payer MEDICARE, SELFPAY | PROVIDERS: PCP Registered Nurse; Visit Provider Registered Nurse | DX: E11.40 Type 2 diabetes mellitus with diabetic neuropathy, unspecified (principal) | CPT/HCPCS: 80053; 83036 ==